=== PATIENT | female | born 1945 | race Caucasian/White ===

== ENCOUNTER 2016-11-07 09:05 | Emergency (ER) | payer OTHER ==
[~2016-11-07] VITALS: Ht 165.1 cm; Wt 65.6 kg
[~2016-11-07 09:05] MED LIST: BENTYL20 MG PO; CIPRO250 MG PO; CORTENEMA PR; DAILY VALUE1 EACH PO; DICYCLOMINE HCL20 MG PO; FLAGYL500 MG PO; Flagyl PO; GLIPIZIDE ER2.5 M1 PO; GLUCOTROL XL2.5 MG PO; INSULIN; LOW DOSE ASPIRI81 M1 PO; METFORMIN; NEUTRA-PHOS,1 PACKET PO; NOVOLIN N100 UNIT/1 IM; NOVOLIN,HU100 UNITS1; NOVOLIN,HU100 UNITS1 SC; PREVACID30 MG PO; PRINIVIL20 MG PO; PRINIVIL5 MG PO; Prevacid PO; ROWASA60 ML PR; Tylenol Regular Stre PO; ULTRAM50 MG PO; VENTOLIN HFA18 GM IH; ZESTRIL,PRINIVIL5 MG PO
[2016-11-07] MEDS ORDERED: METFORMIN HCL500 MG PO (09:26)
[2016-11-07] MEDS ORDERED: NEURONTIN100 MG PO (09:26)
[2016-11-07 11:12] LABS: TROP-I INTERPRETATION NEGATIVE; TROPONIN-I 0.01 ng/mL (0.0-0.30)
[2016-11-07] MEDS ORDERED: MOTRIN800 MG PO (11:14)
[2016-11-07] MEDS ORDERED: FLEXERIL10 MG PO (11:14)
[2016-11-07 11:47] VITALS: BP 156/83
== END 2016-11-07 11:48 | disposition home or self-care (01) ==
LOC: EME → EDBD 09:05 → EME 11:48
PROVIDERS: Nurse Practitioner Family
DX: S46.911A Strain of unspecified muscle, fascia and tendon at shoulder and upper arm level, right arm, initial encounter (principal); S16.1XXA Strain of muscle, fascia and tendon at neck level, initial encounter; E11.9 Type 2 diabetes mellitus without complications; I10 Essential (primary) hypertension
CPT/HCPCS: 84484; 93005; 99281; 99284